=== PATIENT | female | born 1980 | race Caucasian/White ===

== ENCOUNTER 2022-11-11 16:05 | Inpatient (IN) | payer MEDICAID, SELFPAY ==
[2022-11-11 16:15] VITALS: BMI 21.9
[2022-11-11 16:35] VITALS: BP 120/74; PULSE 77; RESP 16; TEMP 37.1; O2SAT 98
[2022-11-11] MEDS: quetiapine 25 mg Tablet PO (21:05)
[2022-11-11] MEDS: gabapentin 300 mg Capsule 600 MG PO (21:05)
[2022-11-11 22:00] VITALS: BP 117/75; PULSE 84; RESP 16; TEMP 36.6; O2SAT 97
[2022-11-12 05:50] VITALS: RESP 18
--- NOTE | 2022-11-12 05:50 | PC.NURSE ---
resp. pt. sleeping
[2022-11-12] MEDS: gabapentin 300 mg Capsule 600 MG PO ×3 (08:27→20:36)
[2022-11-12] MEDS: acyclovir 400 mg Tablet PO ×2 (08:34→20:36)
--- NOTE | 2022-11-12 09:34 | P.NPUHP_ITS ---
Providers/Chief Complaint Admitting Physician: Marlon Dubose MD Chief Complaint: SI HPI NPU History of Present Illness Nora Tabares is a 42 year old female presents the outside hospital with reports of confusion and change in behavior. She was taken by her mother reports that she had been off of her medication for at least a week. At that time reports rarely she has a history bipolar and she goes to [facility] for treatment. They reportedly put her on lithium though she asked not to be on it but agreed to a trial. She reported being very nauseous and discontinuing it and ultimately stopping all her medications. She reported being on Caplyta and was tapered off Lamictal and reported that Friday she got lost and a psychotic break according to her mother. Slowly started around the with medication changes. Reportedly that led to not sleeping for about 5 days, eating very little and her reasoning was expressed in conversation. Reports the outside hospital or that she is flat. They report that she lives alone and was working until about 3 weeks ago when the symptoms started getting really bad. She denies allegorical substance use except for smoking cigarettes which has been doing that lately. There is no clear report of lethality. At the outside hospital she was reporting that she believes is not something wrong people but mother reported that she is really kind and would already 1. She was then confused, disorganized but was cooperative and got answer questions. She was transferred to [facility] and admitted to the neuropsychiatric unit for definitive treatment of those issues. This morning this adjusto writer operator attempted to sit down with her and reviewed the history as presented from outside hospital. Staff reports that she was very irritable yesterday being fairly groomed interaction but expressing that everyone at this hospital being rude to her. She was identifying with this adjusto writer operator that the information that I was reviewing seems accurate but very quickly into the interview and she discontinued the conversation and said she had a sleep and appetite later interview. Any more questions. Additional information in the outside documentation is a hospitalized at least 1 time at 14.1 she did advise that she currently unemployed, lives alone he is about 1 pack of cigarettes a day reported has an area in the past but / with 3 children reportedly lives with her children which was completely mother reports that she lives alone. Meds NPU Home Medications Medication Instructions Recorded Confirmed Last Taken Type acyclovir 400 mg tablet 400 mg PO BID 11/11/22 11/11/2211/09/23 History albuterol sulfate 90 mcg/actuation 1 puff inhalation QID PRN 11/11/22 11/11/22 Unknown History aerosol inhaler (Ventolin HFA) Shortness Of Breath gabapentin 600 mg tablet 600 mg PO TID 11/11/22 11/11/22 11/09/22 History lamotrigine 100 mg tablet,extended 100 mg PO DAILY 11/11/22 11/11/22 Unknown History release 24 hr lithium carbonate 600 mg capsule 600 mg PO BEDTIME 11/11/22 11/11/22 Unknown History lumateperone 42 mg capsule 42 mg PO DAILY@19 11/11/22 11/11/22 11/09/22 History (Caplyta) Allergies Allergy/AdvReac Type Severity Reaction Status Date / Time trazodone Allergy Severe ALGY-Anaphy Verified 11/11/22 20:05 laxis Mental Status Exam MSE Comments: This is a well-nourished well-developed white female in hospital scrubs with adequate grooming and limited eye contact. No known movements except for mild psychomotor agitation. Uncooperative exam and in mild-moderate distress. Speech was normal rate and volume. Mood described affect irritable. Thought process linear. Thought content: Patient did not respond to questions of lethality but did not have any earlier outwardly directed aggression. There were no delusions reported or noted, she did not report any auditory visualizations and did not be attending to internal stimuli. Attention and concentration were limited memory was unable to be assessed but none were formally tested. She was alert and oriented to self. Insight, judgment and impulse control impaired. Vitals/I&O/Wt Last Vital Signs Temp 97.9 F 11/11/22 22:00 Pulse 84 11/11/22 22:00 Resp 18 11/12/22 05:50 BP 117/75 11/11/22 22:00 Pulse Ox 97 11/11/22 22:00 O2 Del Method Room Air 11/11/22 22:00 Weight last 48 hrs Weight 54.431 kg A&P Assessment and plan (1) Bipolar disorder with psychotic features: (2) Altered mental status: Plan This is a 42-year-old white female with a history of of bipolar disorder versus schizoaffective disorder bipolar type who presents with mental status change of her medications.. 1. Continue current medications. Identified that she is been on Abilify and Invega in the past and restarted hopes of utilizing long-acting injectable. 2. Encourage individual, group and milieu therapy 3. Continue q-15 minute check for safety 4. Get collateral information. Involuntary Hold Information 96 Hour Hold: 96 Hour Involuntary Admission: No Attestations NPU Medical Necessity Statement*: Inpatient hospitalization is medically necessary and the clinically appropriate intervention at this time. We will monitor medications and make changes as indicated. She will be in the hospital for over 2 midnights. Likely length of stay 5 to 7 days. Coding Level of Care Code Acute Code for g Fwd Diagnoses Bipolar disorder with psychotic features F31.9 Altered mental status R41.82
[2022-11-12 14:00] VITALS: BP 93/56; PULSE 96; RESP 17; TEMP 36.9; O2SAT 95
[2022-11-12 19:59] VITALS: BP 89/57; PULSE 104; RESP 18; TEMP 37.2; O2SAT 97
[2022-11-13] MEDS: gabapentin 300 mg Capsule 600 MG PO ×2 (08:09→20:27)
[2022-11-13] MEDS: acyclovir 400 mg Tablet PO ×2 (08:09→20:27)
[2022-11-13] MEDS: ibuprofen 600 mg Tablet PO (08:47)
--- NOTE | 2022-11-13 11:01 | PC.NURSE ---
PT DENIES PAIN. DENIES SI/HI AND AVH AT THIS TIME. PT VERY WITHDRAWN AND ISOLATES PRIMARILY TO HER ROOM. PT ANSWERED QUESTIONS YES/NO WOULD NOT ELABORATE ON ANY ANSWERS. PT UP FOR BREAKFAST THEN LAID BACK DOWN TO REST IN ROOM.
--- NOTE | 2022-11-13 13:03 | W.PM.NPUPNS ---
Subjective NPU Subjective: Patient presents today reporting that she is not really sure how she is doing. She tells a history of the Caplyta being effective until it was not. And also not really liking how the lithium feels and feeling that it is ineffective. We continue to discuss Invega or Abilify as possible medications to replace these medications as a mood stabilizer. She denies recalling a history of taking either medication. We discussed the risk benefits and alternatives of initiating Abilify and she understood and agreed to proceed as is documented in this note. Mental Status Exam MSE Comments: This is a well-nourished well-developed white female in hospital scrubs with adequate grooming and limited eye contact. No abnormal movements except for mild psychomotor retardation. Still somewhat uncooperative with exam and in mild-moderate distress. Speech was normal rate and decreased volume. Mood described as I do not know, affect irritable. Thought process linear. Thought content: Patient did not respond to questions of lethality but did not have any inwardly or outwardly directed aggression. There were no delusions reported or but significant paranoia and guardedness noted, she did not report any auditory or visual hallucinations and did not be attending to internal stimuli. Attention and concentration were limited memory was limited but none were formally tested. She was alert and oriented to person and place. Insight, judgment and impulse control impaired. Vitals/I&O/Wt Last Vital Signs Temp 98.9 F 11/12/22 19:59 Pulse 104 H 11/12/22 19:59 Resp 18 11/12/22 19:59 BP 89/57 11/12/22 19:59 Pulse Ox 97 11/12/22 19:59 O2 Del Method Room Air 11/12/22 19:59 Weight last 48 hrs Weight 54.431 kg A&P Assessment and plan (1) Bipolar disorder with psychotic features: (2) Altered mental status: Plan This is a 42-year-old white female with a history of of bipolar disorder versus schizoaffective disorder bipolar type who presents with mental status change of her medications.. 1. Continue current medications. That she had not been on Abilify or Invega in the past and we restarted home medications. We will start Abilify 10 mg p.o. every morning in the morning with hopes of getting her on the long-acting injectable. 2. Encourage individual, group and milieu therapy 3. Continue q-15 minute check for safety 4. Get collateral information. Involuntary Hold Information 96 Hour Hold: 96 Hour Involuntary Admission: No Attestations NPU Medical Necessity Statement*: Inpatient hospitalization is medically necessary and the clinically appropriate intervention at this time. We will monitor medications and make changes as indicated. Likely length of stay 4-6 days. Coding Level of Care Code Acute Code for [facility] Fwd Diagnoses Bipolar disorder with psychotic features F31.9 Altered mental status R41.82
--- NOTE | 2022-11-13 13:26 | PC.NURSE ---
PTS MOTHER CALLED AND SPOKE WITH THIS RN CONCERNING DAUGHTERS CARE AND MEDICAL HISTORY. MOTHER IS ON THE HIPPA LIST AND WAS VERIFIED. MOTHER IS WANTING A CALL FROM DR. MCKINNEY TO DISCUSS HER PSYCHIATRIC CARE IN DETAIL. DR. MCKINNEY WAS NOTIFIED AND GIVEN HER PHONE NUMBER. PTS MOTHER WANTED TO MAKE SURE THIS RN KNEW SHE WORKED FOR THE [employer] AND EXPECTED A DAILY CALL FROM THE DR. PTS MOTHER WAS INSTRUCTED TO CALL FACILITY AND SPEAK TO THE RN TAKING CARE OF PT TO GET HER UPDATE. PTS MOTHER BECAME UPSET THAT THIS RN COULD NOT COORDINATE A SIMPLE PHONE CALL EVERYDAY. PTS MOTHER WAS GIVEN AN UPDATE. PTS MOTHER SUGGESTED THAT SOMEONE NEEDS TO BE AT HER BEDSIDE TO CODDLE HER WHILE SHE GOES THROUGH THIS. SHE IS MY ONLY CHILD AND I AM WORRIED THE COMMUNICATION AND THE CARE ISN'T WHAT IT NEEDS TO BE AND SOMEONE NEEDS TO BE IN THERE. PTS MOTHER WAS INFORMED THAT THIS RN HAS BEEN IN THERE 3 TIMES TRYING TO GET HER TO INTERACT AND ALL PT WOULD SAY IS I'M FINE, I SAID I'M FINE. MOTHER THEN STATED WELL SHE HAS NOT SLEPT FOR 3 DAYS THATS WHAT I AM TRYING TO TELL YOU. INFORMATION WAS COLLECTED PLACED IN THIS NOTE AND GIVEN TO DR. MCKINNEY. MOTHER REPORTED THAT HER DAUGHTER WAS WORKING UNTIL 11/01/22 AND THEN TOOK OFF AND GOT LOST, THEN SCARED. 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 ALL QUESTIONS ANSWERED AND SUPPORT WAS VOICED.
[2022-11-13 14:00] VITALS: BP 165/71; PULSE 84; RESP 17; TEMP 37.4; O2SAT 94
--- NOTE | 2022-11-13 14:15 | PC.NURSE ---
INFORMED PT IT WAS TIME TO TAKE GABAPENTIN. PT STATES NO I'M FINE. I'M NOT TAKING THAT. ENCOURAGE PT TO TAKE MEDS. PT GOT UPSET AND STATED I SAID I'M FINE. DOCUMENTED PT REFUSED.
--- NOTE | 2022-11-13 16:25 | PC.NURSE ---
PT DID GET UP TO SHOWER AND SPEAK TO MOTHER ON PHONE. PT ALSO ATE A FEW SNACKS AND DRANK FRUIT PUNCH. CONTINUES TO BE EVASIVE ONLY ANSWERING YES NO QUESTIONS. WILL CONTINUE TO MONITOR MOOD.
[2022-11-13 21:06] VITALS: PULSE 80; O2SAT 93
[2022-11-13 21:07] VITALS: BP 96/63; PULSE 85; RESP 18; TEMP 36.9; O2SAT 98
[2022-11-14 06:00] VITALS: RESP 16
[2022-11-14] MEDS: ibuprofen 600 mg Tablet PO (07:35)
[2022-11-14] MEDS: ARIPiprazole 10 mg Tablet PO (08:12)
[2022-11-14] MEDS: acyclovir 400 mg Tablet PO ×2 (08:13→20:29)
[2022-11-14] MEDS: gabapentin 300 mg Capsule 600 MG PO ×3 (08:14→20:29)
--- NOTE | 2022-11-14 11:52 | P.NPUPN_ITS ---
Subjective NPU Subjective: Today reporting that she is doing okay. She had her first dose of Abilify this morning without incident. She denied any problems with taking it thus far. She reports that she continues to feel odd and different. We discussed continuing the Abilify and likely discontinuing Caplyta given that she denied it maintaining its effectiveness. She reports that she is sleeping a little better and denied any new or pressing issues. Mental Status Exam MSE Comments: This is a well-nourished well-developed white female in hospital scrubs with adequate grooming and limited eye contact. No abnormal movements except for mild psychomotor retardation. Still somewhat uncooperative with exam and in mild distress. Speech was normal rate and decreased volume. Mood described as I do not know, affect slightly less irritable. Thought process linear. Thought content: Patient did not respond to questions of lethality but did not have any inwardly or outwardly directed aggression. There were no delusions reported or but significant paranoia and guardedness noted, she did not report any auditory or visual hallucinations and did not be attending to internal stimuli. Attention and concentration were limited memory was limited but none were formally tested. She was alert and oriented to person and place. Insight, judgment and impulse control impaired. Vitals/I&O/Wt Last Vital Signs Temp 98.4 F 11/13/22 21:07 Pulse 85 11/13/22 21:07 Resp 16 11/14/22 06:00 BP 96/63 11/13/22 21:07 Pulse Ox 98 11/13/22 21:07 O2 Del Method Room Air 11/13/22 21:07 A&P Assessment and plan (1) Bipolar disorder with psychotic features: (2) Altered mental status: Plan This is a 42-year-old white female with a history of of bipolar disorder versus schizoaffective disorder bipolar type who presents with mental status change of her medications.. 1. Continue current medications. That she had not been on Abilify or Invega in the past and we restarted home medications. 10 mg p.o. every morning with pl an to titrate and with hopes of getting her on the long-acting injectable. 2. Encourage individual, group and milieu therapy 3. Continue q-15 minute check for safety 4. Get collateral information. Involuntary Hold Information 96 Hour Hold: 96 Hour Involuntary Admission: No Attestations NPU Medical Necessity Statement*: Inpatient hospitalization is medically necessary and the clinically appropriate intervention at this time. We will monitor medications and make changes as indicated. Likely length of stay 4-6 days. Coding Level of Care Code Acute Code for Chg Fwd Diagnoses Bipolar disorder with psychotic features F31.9 Altered mental status R41.82
--- NOTE | 2022-11-14 12:20 | PC.NURSE ---
Patient reports that her water from her faucet has black flakes in it. When this nurse examined the water, nothing was seen. Patient states that there had been flakes in it earlier in the day. Because of this, patient doesn't want to wash her hands or shower. This nurse encouraged patient to use the public sink in the [place]. Patient also not wanting to drink anything, including pre-packaged items, because she states that everything is weird . She said the apple juice should be thinner consistency.
[2022-11-14 14:00] VITALS: BP 110/79; PULSE 103; RESP 18; TEMP 36.4; O2SAT 99
[2022-11-14 20:27] VITALS: BP 112/73; PULSE 93; RESP 17; TEMP 36.7; O2SAT 97
[2022-11-14 20:41] VITALS: PULSE 103; O2SAT 98
[2022-11-15 06:00] VITALS: RESP 15
[2022-11-15] MEDS: ARIPiprazole 10 mg Tablet PO (08:10)
[2022-11-15] MEDS: ibuprofen 600 mg Tablet PO (08:10)
[2022-11-15] MEDS: gabapentin 300 mg Capsule 600 MG PO ×3 (08:10→21:18)
[2022-11-15] MEDS: acyclovir 400 mg Tablet PO ×2 (08:10→21:18)
[2022-11-15] MEDS: docusate sodium 100 mg Capsule PO (08:17)
[2022-11-15 13:00] VITALS: PULSE 104; RESP 16; O2SAT 98
[2022-11-15 14:00] VITALS: BP 120/66; PULSE 91; RESP 16; TEMP 36.7; O2SAT 98
--- NOTE | 2022-11-15 17:49 | P.NPUPN_ITS ---
Subjective NPU Subjective: Patient presented today reporting that she does feel a little better now that she is started the Abilify. She began asking about the oil change technician to a long- acting injectable. She seemed to be responsive to the conversation but was very easily insulted or very easily read the conversation wrong as if there was an issue when there was not. She denied any side effects to the medications. Mental Status Exam MSE Comments: This is a well-nourished well-developed white female in hospital scrubs with adequate grooming and limited eye contact. No abnormal movements except for mild psychomotor retardation. Still somewhat uncooperative with exam and in mild distress. Speech was normal rate and decreased volume. Mood described as I do not know, affect slightly less irritable. Thought process linear. Thought content: Patient denied suicidal or homicidal ideations. There were no delusions reported or but significant paranoia and guardedness noted, she did report some auditory but denied visual hallucinations and did not be attending to internal stimuli. Attention and concentration were limited memory was limited but none were formally tested. She was alert and oriented to person and place. Insight, judgment and impulse control impaired. Vitals/I&O/Wt Last Vital Signs Temp 98.1 F 11/15/22 14:00 Pulse 91 11/15/22 14:00 Resp 16 11/15/22 14:00 BP 120/66 11/15/22 14:00 Pulse Ox 98 11/15/22 14:00 O2 Del Method Room Air 11/15/22 14:00 A&P Assessment and plan (1) Bipolar disorder with psychotic features: (2) Altered mental status: Plan This is a 42-year-old white female with a history of of bipolar disorder versus schizoaffective disorder bipolar type who presents with mental status change of her medications.. 1. Continue current medications. That she had not been on Abilify or Invega in the past and we restarted home medications. Started Abilify 10 mg p.o. every morning with plan to titrate and with hopes of getting her on the long-acting injectable. Plan to increase to 15 mg po qam 2. Encourage individual, group and milieu therapy 3. Continue q-15 minute check for safety Involuntary Hold Information 96 Hour Hold: 96 Hour Involuntary Admission: No Attestations NPU Medical Necessity Statement*: Inpatient hospitalization is medically necessary and the clinically appropriate intervention at this time. We will monitor medications and make changes as indicated. Likely length of stay 4-6 days. Coding Level of Care Code Acute Code for g Fwd Diagnoses Bipolar disorder with psychotic features F31.9 Altered mental status R41.82
[2022-11-15 20:00] VITALS: PULSE 105; RESP 16; O2SAT 96
[2022-11-15 22:00] VITALS: RESP 18
[2022-11-16 06:00] VITALS: BP 145/86; PULSE 117; RESP 18; TEMP 36.6; O2SAT 96
--- NOTE | 2022-11-16 08:00 | PC.NURSE ---
Nursing Note Patient feels staff and other patients are talking about her and laughing at her. States that's why she is just going to stay in her room. Patient states she knows staff just doesn't wanna make her coffee. Assured her that the cane furniture maker is being cleaned and we will try coffee again soon. States there is just weird things happening here but would not elaborate on what she meant. Patient states I am fine, i don't wanna cause trouble . Assured patient she was no trouble and encouraged her to talk with staff or physician with any issues or concerns.
[2022-11-16] MEDS: ARIPiprazole 10 mg Tablet PO (08:38)
[2022-11-16] MEDS: gabapentin 300 mg Capsule 600 MG PO ×3 (08:38→20:07)
[2022-11-16] MEDS: acyclovir 400 mg Tablet PO ×2 (08:38→20:07)
--- NOTE | 2022-11-16 08:56 | W.PM.NPUPNS ---
Subjective NPU Subjective: Patient presented today reporting that she is tolerating the Abilify. She denies any side effects to medication. And we discussed that it was increased today. Staff report her to be more outgoing and less isolative and seeming to think a little more clearly. And that was notable during the interview. We talked about possibly decreasing her other mood stabilizers. Mental Status Exam MSE Comments: This is a well-nourished well-developed white female in hospital scrubs with adequate grooming and improving eye contact. No abnormal movements except for mild psychomotor retardation. More cooperative with exam and in mild distress. Speech was normal rate and decreased volume. Mood described as I do not know, affect less irritable. Thought process linear. Thought content: Patient denied suicidal or homicidal ideations. There were no delusions reported or but significant paranoia and guardedness noted, but diminishing, she denied auditory or visual hallucinations and did not appear to be attending to internal stimuli. Attention and concentration were improving and memory was limited but none were formally tested. She was alert and oriented to person and place. Insight and judgment improving and impulse control impaired. Vitals/I&O/Wt Last Vital Signs Temp 97.9 F 11/16/22 06:00 Pulse 117 H 11/16/22 06:00 Resp 18 11/16/22 06:00 BP 145/86 11/16/22 06:00 Pulse Ox 96 11/16/22 06:00 O2 Del Method Room Air 11/16/22 06:00 A&P Assessment and plan (1) Bipolar disorder with psychotic features: (2) Altered mental status: Plan This is a 42-year-old white female with a history of of bipolar disorder versus schizoaffective disorder bipolar type who presents with mental status change of her medications.. 1. Continue current medications. That she had not been on Abilify or Invega in the past and we restarted home medications. Started Abilify 10 mg p.o. every morning with plan to titrate and with hopes of getting her on the long-acting injectable. Increase to 15 mg po qam 2. Encourage individual, group and milieu therapy 3. Continue q-15 minute check for safety Involuntary Hold Information 96 Hour Hold: 96 Hour Involuntary Admission: No Attestations NPU Medical Necessity Statement*: Inpatient hospitalization is medically necessary and the clinically appropriate intervention at this time. We will monitor medications and make changes as indicated. Likely length of stay 4-6 days. Coding Level of Care Code Acute Code for [facility]g Fwd Diagnoses Bipolar disorder with psychotic features F31.9 Altered mental status R41.82
[2022-11-16] MEDS: ARIPiprazole 10 mg Tablet 5 MG PO (09:54)
[2022-11-16 14:00] VITALS: BP 120/78; PULSE 82; RESP 20; TEMP 36.6; O2SAT 100
[2022-11-16 15:28] VITALS: PULSE 82; RESP 20; O2SAT 100
[2022-11-16 20:00] VITALS: PULSE 95; RESP 18; O2SAT 98
[2022-11-16] MEDS: ibuprofen 600 mg Tablet PO (20:07)
[2022-11-16 22:00] VITALS: BP 113/76; PULSE 95; RESP 18; TEMP 36.9; O2SAT 98
[2022-11-17 05:56] VITALS: RESP 12
[2022-11-17 06:00] VITALS: BMI 21.9
[2022-11-17 08:00] VITALS: PULSE 94; RESP 16; O2SAT 98
--- NOTE | 2022-11-17 08:06 | W.PM.NPUPNS ---
Subjective NPU Subjective: Patient presented today reporting that she is feeling a tiny bit better each day. She is appearing to have increased animation in her interactions and seeming less stoic/robotic. She laughing today about discharge and we discussed the desire for her to be closer to baseline prior to discharge. Especially as she endorsed a desire to return to work. We agreed that she is currently not in a state consistent with working, and she knowledges that. We agreed with a 1 day at a time. We discussed and she was open to getting her on the long-acting injectable prior to discharge. Mental Status Exam MSE Comments: This is a well-nourished well-developed white female in hospital scrubs with adequate grooming and improving eye contact. No abnormal movements except for mild psychomotor retardation. More cooperative with exam and in mild distress. Speech was normal rate and decreased volume. Mood described as a little better I guess, affect less irritable. Thought process linear. Thought content: Patient denied suicidal or homicidal ideations. There were no delusions reported or but paranoia and guardedness noted, but diminishing, she denied auditory or visual hallucinations and did not appear to be attending to internal stimuli. Attention and concentration were improving and memory was limited but none were formally tested. She was alert and oriented to person and place. Insight and judgment improving and impulse control impaired. Vitals/I&O/Wt Last Vital Signs Temp 98.4 F 11/16/22 22:00 Pulse 95 11/16/22 22:00 Resp 12 11/17/22 05:56 BP 113/76 11/16/22 22:00 Pulse Ox 98 11/16/22 22:00 O2 Del Method Room Air 11/16/22 22:00 A&P Assessment and plan (1) Bipolar disorder with psychotic features: (2) Altered mental status: Plan This is a 42-year-old white female with a history of of bipolar disorder versus schizoaffective disorder bipolar type who presents with mental status change of her medications.. 1. Continue current medications. That she had not been on Abilify or Invega in the past and we restarted home medications. Started Abilify 10 mg p.o. every morning with plan to titrate and we discussed a plan to get her on the long-acting injectable prior to discharge. Increased to 15 mg po qam 2. Encourage individual, group and milieu therapy 3. Continue q-15 minute check for safety Involuntary Hold Information 96 Hour Hold: 96 Hour Involuntary Admission: No Attestations NPU Medical Necessity Statement*: Inpatient hospitalization is medically necessary and the clinically appropriate intervention at this time. We will monitor medications and make changes as indicated. Likely length of stay 3-5 days. Coding Level of Care Code Acute Code for Chg Fwd Diagnoses Bipolar disorder with psychotic features F31.9 Altered mental status R41.82
[2022-11-17] MEDS: ARIPiprazole 30 mg Tablet 15 MG PO (08:13)
[2022-11-17] MEDS: gabapentin 300 mg Capsule 600 MG PO ×3 (08:14→20:37)
[2022-11-17] MEDS: acyclovir 400 mg Tablet PO ×2 (08:14→20:42)
[2022-11-17] MEDS: docusate sodium 100 mg Capsule PO (08:16)
[2022-11-17] MEDS: ibuprofen 600 mg Tablet PO ×2 (09:05→16:40)
[2022-11-17 14:00] VITALS: BP 100/73; PULSE 86; RESP 16; TEMP 36.4; O2SAT 100
[2022-11-17 20:17] VITALS: BP 114/76; PULSE 88; RESP 16; TEMP 36.7; O2SAT 100
[2022-11-18 06:00] VITALS: BP 106/72; PULSE 110; RESP 14; TEMP 36.8; O2SAT 96
--- NOTE | 2022-11-18 08:09 | P.NPUPN_ITS ---
Subjective NPU Subjective: Patient presented today continuing to have reports of small still having some challenges with insight. Both she and her significant other were asking about discharge. She ultimately expressed some frustration that her lack of readiness to return to work was suggested. We discussed the fact that we agreed that she is improving, but we want to make sure that she is actually well enough to take on responsibilities at what ever job. We discussed the risks, benefits alternatives of her starting the Abilify maintainer injection at 400 mg and agreed to proceed as is documented in this note. Mental Status Exam MSE Comments: This is a well-nourished well-developed white female in hospital scrubs with adequate grooming and improving eye contact. No abnormal movements except for mild psychomotor retardation. More cooperative with exam and in mild distress. Speech was normal rate and decreased volume. Mood described as better, affect less irritable. Thought process linear. Thought content: Patient denied suicidal or homicidal ideations. There were no delusions reported or but paranoia and guardedness noted, but diminishing, she denied auditory or visual hallucinations and did not appear to be attending to internal stimuli. Attention and concentration were improving and memory was limited but none were formally tested. She was alert and oriented to person and place. Insight and judgment limited but improving and impulse control improving. Vitals/I&O/Wt Last Vital Signs Temp 98.3 F 11/18/22 06:00 Pulse 110 H 11/18/22 06:00 Resp 14 11/18/22 06:00 BP 106/72 11/18/22 06:00 Pulse Ox 96 11/18/22 06:00 O2 Del Method Room Air 11/18/22 06:00 Weight last 48 hrs Weight 54.431 kg A&P Assessment and plan (1) Bipolar disorder with psychotic features: (2) Altered mental status: Plan This is a 42-year-old white female with a history of of bipolar disorder versus schizoaffective disorder bipolar type who presents with mental status change of her medications.. 1. Continue current medications. That she had not been on Abilify or Invega in the past and we restarted home medications. Started Abilify 10 mg p.o. every morning with plan to titrate and we discussed a plan to get her on the long- acting injectable prior to discharge. Increased to 15 mg po qam. We will give Abilify Maintena 400 mg IM in the morning. 2. Encourage individual, group and milieu therapy 3. Continue q-15 minute check for safety Involuntary Hold Information 96 Hour Hold: 96 Hour Involuntary Admission: No Attestations NPU Medical Necessity Statement*: Inpatient hospitalization is medically necessary and the clinically appropriate intervention at this time. We will monitor medications and make changes as indicated. Likely length of stay 2-4 days. Coding Level of Care Code Acute Code for [facility] Fwd Diagnoses Bipolar disorder with psychotic features F31.9 Altered mental status R41.82
[2022-11-18] MEDS: gabapentin 300 mg Capsule 600 MG PO ×3 (08:35→21:16)
[2022-11-18] MEDS: ARIPiprazole 30 mg Tablet 15 MG PO (08:35)
[2022-11-18] MEDS: ibuprofen 600 mg Tablet PO ×2 (08:36→14:28)
[2022-11-18] MEDS: acyclovir 400 mg Tablet PO ×2 (08:36→21:16)
[2022-11-18 14:00] VITALS: RESP 17
[2022-11-18 20:45] VITALS: BP 110/71; PULSE 70; RESP 16; TEMP 36.8; O2SAT 98
[2022-11-19 06:00] VITALS: BP 117/74; PULSE 102; RESP 16; TEMP 36.6; O2SAT 98
[2022-11-19] MEDS: ibuprofen 600 mg Tablet PO ×2 (08:09→14:28)
[2022-11-19] MEDS: gabapentin 300 mg Capsule 600 MG PO ×3 (08:10→20:25)
[2022-11-19] MEDS: ARIPiprazole 30 mg Tablet 15 MG PO (08:10)
[2022-11-19] MEDS: acyclovir 400 mg Tablet PO ×2 (08:11→20:25)
[2022-11-19] MEDS: ARIPiprazole Maintena 400 MG IM (09:28)
--- NOTE | 2022-11-19 09:38 | PC.NURSE ---
Abilify 400mg IM injection given to patient in left deltoid muscle. No adverse reactions. Lot [id number] EXP: November 2024
[2022-11-19 14:00] VITALS: BP 107/70; PULSE 96; RESP 12; TEMP 36.7; O2SAT 98
--- NOTE | 2022-11-19 14:32 | P.NPUPN_ITS ---
Subjective NPU Subjective: Patient presented today reporting that she feels like there is slow but steady improvement. We agreed to discuss and did discuss a discharge framework. She denied any issues with the initiation of the Abilify injection. We discussed a tentative date of discharge on . She reported feeling somewhat less paranoid and is looking forward to being well enough to return to work. Mental Status Exam MSE Comments: This is a well-nourished well-developed white female in hospital scrubs with adequate grooming and improving eye contact. No abnormal movements except for mild psychomotor retardation. More cooperative with exam and in mild distress. Speech was normal rate and decreased volume. Mood described as better, affect less irritable. Thought process linear. Thought content: Patient denied suicidal or homicidal ideations. There were no delusions reported or but paranoia and guardedness noted, but diminishing, she denied auditory or visual hallucinations Attention and concentration were improving and memory was limited, but improving but none were formally tested. She was alert and oriented x3. Insight and judgment limited but improving and impulse control improving. Vitals/I&O/Wt Last Vital Signs Temp 97.9 F 11/19/22 06:00 Pulse 102 H 11/19/22 06:00 Resp 16 11/19/22 06:00 BP 117/74 11/19/22 06:00 Pulse Ox 98 11/19/22 06:00 O2 Del Method Room Air 11/18/22 06:00 A&P Assessment and plan (1) Bipolar disorder with psychotic features: (2) Altered mental status: Plan This is a 42-year-old white female with a history of of bipolar disorder versus schizoaffective disorder bipolar type who presents with mental status change of her medications.. 1. Continue current medications. That she had not been on Abilify or Invega in the past and we restarted home medications. Started Abilify 10 mg p.o. every morning with plan to titrate and we discussed a plan to get her on the long- acting injectable prior to discharge. Increased to 15 mg po qam. We will give Abilify Maintena 400 mg IM in the morning. 2. Encourage individual, group and milieu therapy 3. Continue q-15 minute check for safety Involuntary Hold Information 96 Hour Hold: 96 Hour Involuntary Admission: No Attestations NPU Medical Necessity Statement*: Inpatient hospitalization is medically necessary and the clinically appropriate intervention at this time. We will monitor medications and make changes as indicated. Likely length of stay 1-3 days. Coding Level of Care Code Acute Code for g Fwd Diagnoses Bipolar disorder with psychotic features F31.9 Altered mental status R41.82
[2022-11-19 20:00] VITALS: PULSE 113; O2SAT 97
[2022-11-19 22:00] VITALS: BP 104/70; PULSE 94; RESP 16; TEMP 36.6; O2SAT 98
[2022-11-20 06:00] VITALS: BP 128/74; PULSE 94; RESP 18; TEMP 36.9; O2SAT 97
[2022-11-20] MEDS: gabapentin 300 mg Capsule 600 MG PO ×3 (07:10→19:57)
[2022-11-20] MEDS: ibuprofen 600 mg Tablet PO ×2 (07:10→14:03)
[2022-11-20] MEDS: acyclovir 400 mg Tablet PO ×2 (07:11→19:58)
[2022-11-20] MEDS: ARIPiprazole 30 mg Tablet 15 MG PO (07:11)
[2022-11-20 08:00] VITALS: PULSE 97; RESP 16; O2SAT 98
--- NOTE | 2022-11-20 11:49 | P.NPUPN_ITS ---
Subjective NPU Subjective: Patient presented today reporting that things are going better each day. We discussed the fact that she would need to have overlap in her Abilify injection and oral for about 12 more days. We discussed her thoughts about returning to work. And we discussed a plan for discharge in the morning which made her quite happy. Mental Status Exam MSE Comments: This is a well-nourished well-developed white female in hospital scrubs with adequate grooming and improving eye contact. No abnormal movements except for mild but resolving psychomotor retardation. More cooperative with exam and in mild distress. Speech was normal rate and decreased volume. Mood described as better, affect brighter. Thought process linear. Thought content: Patient denied suicidal or homicidal ideations. There were no delusions reported and paranoia is slowly improving, she denied auditory or visual hallucinations Attention and concentration were improving and memory was limited, but improving but none were formally tested. She was alert and oriented x3. Insight and judgment limited but improving and impulse control improving. Vitals/I&O/Wt Last Vital Signs Temp 98.4 F 11/20/22 06:00 Pulse 97 11/20/22 08:00 Resp 16 11/20/22 08:00 BP 128/74 11/20/22 06:00 Pulse Ox 98 11/20/22 08:00 O2 Del Method Room Air 11/20/22 08:00 A&P Assessment and plan (1) Bipolar disorder with psychotic features: (2) Altered mental status: Plan This is a 42-year-old white female with a history of of bipolar disorder versus schizoaffective disorder bipolar type who presents with mental status change of her medications.. 1. Continue current medications. That she had not been on Abilify or Invega in the past and we restarted home medications. Started Abilify 10 mg p.o. every morning with plan to titrate and we discussed a plan to get her on the long- acting injectable prior to discharge. Increased to 15 mg po qam. We will give Abilify Maintena 400 mg IM in the morning. 2. Encourage individual, group and milieu therapy 3. Continue q-15 minute check for safety Involuntary Hold Information 96 Hour Hold: 96 Hour Involuntary Admission: No Attestations NPU Medical Necessity Statement*: Inpatient hospitalization is medically necessary and the clinically appropriate intervention at this time. We will monitor medications and make changes as indicated. Plan for discharge in the morning. Coding Level of Care Code Acute Code for [facility] Fwd Diagnoses Bipolar disorder with psychotic features F31.9 Altered mental status R41.82
[2022-11-20 14:00] VITALS: BP 108/72; PULSE 84; RESP 16; TEMP 36.7; O2SAT 99
[2022-11-20] MEDS: magnesium hydroxide 30 mL UDC PO (18:14)
[2022-11-20 21:32] VITALS: BP 100/61; PULSE 115; RESP 18; TEMP 36.4; O2SAT 96
[2022-11-21 06:00] VITALS: RESP 16
[2022-11-21] MEDS: ARIPiprazole 30 mg Tablet 15 MG PO (07:58)
[2022-11-21] MEDS: gabapentin 300 mg Capsule 600 MG PO (07:59)
[2022-11-21] MEDS: ibuprofen 600 mg Tablet PO (07:59)
[2022-11-21] MEDS: acyclovir 400 mg Tablet PO (07:59)
--- NOTE | 2022-11-21 09:54 | P.NPUDS_ITS ---
Diagnoses at Discharge Discharge Diagnosis (1) Bipolar disorder with psychotic features: Status: Acute (2) Altered mental status: Status: Acute Reason for Visit Reason for Visit: SI Brief History: History of Present Illness Nora Tabares is a 42 year old female presents the outside hospital with reports of confusion and change in behavior. She was taken by her mother reports that she had been off of her medication for at least a week. At that time reports rarely she has a history bipolar and she goes to [facility] for treatment. They reportedly put her on lithium though she asked not to be on it but agreed to a trial. She reported being very nauseous and discontinuing it and ultimately stopping all her medications. She reported being on Caplyta and was tapered off Lamictal and reported that Friday she got lost and a psychotic break according to her mother. Slowly started around the with medication changes. Reportedly that led to not sleeping for about 5 days, eating very little and her reasoning was expressed in conversation. Reports the outside hospital or that she is flat. They report that she lives alone and was working until about 3 weeks ago when the symptoms started getting really bad. She denies allegorical substance use except for smoking cigarettes which has been doing that lately. There is no clear report of lethality. At the outside hospital she was reporting that she believes is not something wrong people but mother reported that she is really kind and would already 1. She was then confused, disorganized but was cooperative and got answer questions. She was transferred to [facility] and admitted to the neuropsychiatric unit for definitive treatment of those issues. This morning this commercial real estate underwriter attempted to sit down with her and reviewed the history as presented from outside hospital. Staff reports that she was very irritable yesterday being fairly groomed interaction but expressing that everyone at this hospital being rude to her. She was identifying with this commercial real estate underwriter that the information that I was reviewing seems accurate but very quickly into the interview and she discontinued the conversation and said she had a sleep and appetite later interview. Any more questions. Additional information in the outside documentation is a hospitalized at least 1 time at 14.1 she did advise that she currently unemployed, lives alone he is about 1 pack of cigarettes a day reported has an area in the past but / with 3 children reportedly lives with her children which was completely mother reports that she lives alone. Hospital Course Hospital Course Patient slowly acclimated to the individual, group and milieu therapies provided.? She presented with significant psychosis with significant paranoia and inability to care for self. We discontinued Caplyta and lithium and contin ued Neurontin etc. Abigillian eventually transferring her over to the Abilify Maintena 400 mg injection. It took significant days to break her psychosis but eventually she was able to function more normally. She worked with the social work team to come up with appropriate follow-up and discharge appointments. She had significant improvement during the hospitalization and was able to contract for safety outside of the hospital prior to discharge.? At the outside hospital, she had routine laboratory studies which were within normal limits except for a few outliers.? Additionally she had general medical evaluation which was also within normal limits and revealed no new acute processes. At the time of discharge, she denied any lethality and her psychosis and paranoia were resolving.? Mood and anxiety were well managed and she endorsed a plan to avoid all drugs of abuse, and follow-up with the recommended post hospital services.? She was evaluated and deemed to be absent credible lethality and had received the maximum benefit from an inpatient hospitalization, so was discharged. Involuntary Hold Information 96 Hour Hold: 96 Hour Involuntary Admission: No Mental Status Exam MSE Comments: This is a well-nourished well-developed white female in hospital scrubs with adequate grooming and improving eye contact. No abnormal movements except for mild but resolving psychomotor retardation. More cooperative with exam and in no acute distress. Speech was normal rate and decreased volume. Mood described as better, affect brighter. Thought process linear. Thought content: Patient denied suicidal or homicidal ideations. There were no delusions reported and paranoia is slowly improving, she denied auditory or visual hallucinations Attention and concentration were improving and memory was limited, but improving but none were formally tested. She was alert and oriented x3. Insight and judgment limited but improving and impulse control improving. Discharge Data Vitals: Last Vital Signs Temp 97.6 F 11/20/22 21:32 Pulse 115 H 11/20/22 21:32 Resp 16 11/21/22 06:00 BP 100/61 11/20/22 21:32 Pulse Ox 96 11/20/22 21:32 O2 Del Method Room Air 11/21/22 09:03 Discharge Plan Discharge Patient Disposition: Home Condition: Stable Prescriptions: New Abilify Maintena 400 mg suspension,extended rel syring 400 mg IM Q28D Qty: 1 1RF Continued acyclovir 400 mg Tablet 400 mg PO BID Ventolin HFA 90 mcg/actuation Hfa Aerosol Inhaler 1 puff INHALATION QID PRN (Reason: Shortness Of Breath) gabapentin 600 mg Tablet 600 mg PO TID 30 Days Qty: 90 1RF Discontinued lamotrigine 100 mg Tablet Extended Release 24hr 100 mg PO DAILY Caplyta 42 mg Capsule 42 mg PO DAILY@19 lithium carbonate 600 mg Capsule 600 mg PO BEDTIME Discharge Orders: Discharge Order (Routine); Ordered 11/21/22 Ordered By: Marlon Dubose Referrals: Dolores Card [Other] - 11/28/22 10:00 am (Follow up with Psychiatrist Viet Mcfadden. ) Discharge Diet: Regular Discharge Activity: Resume usual activity Patient Instructions: Depression (DC), Help Prevent Suicide (DC), Suicide Prevention (DC), Opioid Safety Discharge Attestations NPU Time Spent in Discharge Care*: less than 30 min Specific Discharge Activities: Specific discharge activities: educating patient, discussing with case investigator/social workers/dc planners, documenting/other paperwork and evaluating patient/reviewing data Coding Level of Care Code Acute Chg FW DC note Diagnoses Bipolar disorder with psychotic features F31.9 Altered mental status R41.82
[2022-11-21 10:05] VITALS: BP 113/78; PULSE 84; RESP 16; TEMP 36.5; O2SAT 95
--- NOTE | 2022-11-21 10:51 | PC.NURSE ---
written discharge instruction discussed and left with patient, Nora states understanding and compliance. administered verbal education on 1800 quitnow for smoking cessation assistance. pt left in pov accompanied by spouse.
== END 2022-11-21 10:48 | disposition home or self-care (01) | DRG 885 ==
PROVIDERS: Admitting Provider Psychiatry & Neurology Psychiatry; Family Provider Family Medicine; PCP Nurse Practitioner Family; Visit Provider Psychiatry & Neurology Psychiatry
DX: F31.9 Bipolar disorder, unspecified (principal); Z91.148 Patient's other noncompliance with medication regimen for other reason; F17.210 Nicotine dependence, cigarettes, uncomplicated
CPT/HCPCS: 96372; 97150; 97165; 99238; J8499